=== PATIENT | female | born 1975 | race Two or more races ===

== ENCOUNTER 2025-03-03 13:11 | Emergency (ER) | payer MEDICAID, OTHER ==
[~2025-03-03] VITALS: Ht 157.5 cm; Wt 89.2 kg
[2025-03-03 14:56] VITALS: BP 126/80; PULSE 100; RESP 17; TEMP 98.6; O2SAT 95
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
[2025-03-03] MEDS ORDERED: METH-1181 PO (16:20)
[2025-03-03] MEDS ORDERED: IBUP-1456 PO (16:20)
[2025-03-03] MEDS: HYDROcodone-ACET 7.5/325MG TAB PO ONE (16:24)
== END 2025-03-03 16:30 | disposition home or self-care (01) ==
LOC: ER 13:11
DX: R07.89 Other chest pain (principal); M79.651 Pain in right thigh; M79.631 Pain in right forearm; Z79.899 Other long term (current) drug therapy
CPT/HCPCS: 71045; 73030; 73562